=== PATIENT | female | born 1940 | race Caucasian/White ===

== ENCOUNTER 2019-03-18 08:50 | Day surgery (SDC) | payer MEDICARE, SELFPAY ==
[2019-03-18 09:01] VITALS: BP 128/78; PULSE 73; RESP 15; TEMP 36; O2SAT 98; BMI 22.3
--- NOTE | 2019-03-18 10:00 | PM.HP.1 ---
History of Present Illness Date Patient Seen: 03/18/19 Time Patient Seen: 10:00 Chief complaint: [id number] Narrative: Velasco's Patient History Medical History (Updated 03/18/19 @ 10:01 by Frank Theodore MD) Barretts esophagus (Acute) Cataract fragments in both eyes following surgery (Acute) Dysphagia (Acute) History of hysterectomy (Acute ~1974) History of melanoma (Acute ~2003) Hypertension (Acute) Surgical History (Updated 03/17/19 @ 16:49 by Yessi Garcia RN) History of cholecystectomy (Acute) History of colonoscopy (Acute ~2013) History of esophagogastroduodenoscopy (EGD) (Acute) History of nephrectomy (Acute) History of total knee arthroplasty (Acute) Social History household members: friend(s) Family & Social History Social History: household members friend(s) Meds Home Medications Medication Instructions Recorded Confirmed Type cholecalciferol (vitamin D3) 1,000 unit PO DAILY 03/17/19 03/17/19 History [Vitamin D3] irbesartan 150 mg PO DAILY 03/17/19 03/17/19 History Allergies Allergy/AdvReac Type Severity Reaction Status Date / Time morphine Allergy Severe Unlisted Verified 03/17/19 16:50 Exam Vital Signs (past 8 hours): - 03/18/19 09:01 Temperature 96.8 F L Pulse Rate 73 Respiratory Rate 15 Blood Pressure 128/78 Pulse Oximetry 98 Oxygen Delivery Method Room Air Narrative Exam Narrative: Oropharynx free of lesions Chest clear to auscultation percussion Cardiac exam reveals no S3 or murmur Assessment & Plan Assessment & Plan narrative: Velasco's esophagus need for follow-up EGD. Known short-segment Velasco's with very large hiatal hernia risks, benefits, alternatives have been explained.
--- NOTE | 2019-03-18 10:02 | PM.OP.ENDO ---
Operative Date/Time/Diagnoses Date of procedure: 03/18/19 Time of procedure: 10:02 Pre-op diagnosis: See indications and findings Procedure & Clinicians Study performed: EGD Indications: Velasco's Surgeon: Frank Theodore Procedure Notes Procedure in detail: After informed consent was obtained the patient was placed in the left lateral decubitus position. The video upper scope was placed into the oropharynx with the patient's health swallowed in the esophagus. The esophagus stomach and duodenum were carefully examined. On withdrawal, retroflexed view of the GE junction was performed. The scope was removed. The patient tolerated the procedure well. Blood loss none Complications none Medications Total sedation time 12 minutes Fentanyl 100 mg Versed 3 mg IV titration Findings 1. Completely normal squamocolumnar junction. The very regular at 33 cm. Retroflex view confirms. No Velasco's present. 2. 9 cm large hiatal hernia with a paraesophageal component. No Morgan lesions seen. 3. Normal stomach 4. Normal duodenal bulb and sweep Patient does not have Velasco's esophagus and needs no follow-up endoscopies.
[2019-03-18] MEDS: MIDAZOLAM 5 MG/5 ML VIAL IV (10:27)
[2019-03-18] MEDS: fentaNYL 250 MCG/5 ML INJ IV (10:28)
[2019-03-18 10:30] VITALS: PULSE 74; RESP 12; TEMP 36.3; O2SAT 92
[2019-03-18 10:35] VITALS: BP 100/58; PULSE 74; RESP 9; O2SAT 97
[2019-03-18 10:40] VITALS: BP 105/62; PULSE 70; RESP 10; O2SAT 97
[2019-03-18 10:50] VITALS: BP 112/62; PULSE 72; RESP 99; TEMP 36.2; O2SAT 12
--- NOTE | 2019-03-18 10:53 | SUR.PHASEI ---
Post procedure PACU note: VSS, O2 sat WNL on RA. Tolerating PO without any difficulty swallowing or nausea. Denies any pain. Stable for transfer to Phase II. Myles Bragg RN
[2019-03-18 11:06] VITALS: BP 116/70; PULSE 74; RESP 18; TEMP 36.4; O2SAT 97
== END 2019-03-18 11:11 ==
PROVIDERS: PCP Registered Nurse; Visit Provider Internal Medicine Gastroenterology
PROC: 0DJ08ZZ Inspection of Upper Intestinal Tract, Via Natural or Artificial Opening Endoscopic (ICD-10-PCS; CPT 43235; principal; 2019-03-18 10:00)
DX: Z87.19 Personal history of other diseases of the digestive system (principal); K44.9 Diaphragmatic hernia without obstruction or gangrene; I10 Essential (primary) hypertension
CPT/HCPCS: 43235; J2250; J3010